=== PATIENT | female | born 1990 | race Caucasian/White ===

== ENCOUNTER 2022-10-12 10:15 | Outpatient (RCR) | payer OTHER, MEDICAID, SELFPAY | END 2022-10-12 12:45 | disposition home or self-care (01) | PROVIDERS: PCP Family Medicine; Visit Provider Physician Assistant | DX: M22.2X2 Patellofemoral disorders, left knee (principal); M25.562 Pain in left knee; Z51.89 Encounter for other specified aftercare | CPT/HCPCS: 97110; 97112; 97140; 97161 ==